=== PATIENT | male | born 1995 | race African-American/Black ===

== ENCOUNTER 2022-02-25 04:48 | Emergency (ER) | payer MEDICAID, OTHER ==
[~2022-02-25] VITALS: Ht 172.7 cm; Wt 75.0 kg
[2022-02-25] MEDS ORDERED: IBUPROFEN 600MG TABLET PO ONE (05:00)
[2022-02-25] MEDS ORDERED: TETANUS, DIPHTHERIA, PERTUSSIS VAC/PF 0.5ML (>10YR OLD) IM ONE (05:00)
[2022-02-25] MEDS ORDERED: LIDOCAINE HCL/PF 1% 10 MG/ML 5ML VIAL INFIL ONE (05:00)
[2022-02-25] MEDS ORDERED: BACITRACIN ZINC OINT UDPKT TOP ONE (05:00)
[2022-02-25 05:30] VITALS: BP 130/70
== END 2022-02-25 06:09 | disposition home or self-care (01) ==
LOC: ER 04:48
DX: S51.811A Laceration without foreign body of right forearm, initial encounter (principal); S61.411A Laceration without foreign body of right hand, initial encounter; W25.XXXA Contact with sharp glass, initial encounter; W17.89XA Other fall from one level to another, initial encounter; Y93.01 Activity, walking, marching and hiking; Y92.89 Other specified places as the place of occurrence of the external cause
CPT/HCPCS: 12002; 73090; 73130; 90471; 90715; 99283; J3490